=== PATIENT | female | born 1995 | race Hispanic/Latino ===

== ENCOUNTER 2018-10-23 13:05 | Emergency (ER) | payer MEDICARE, OTHER ==
[~2018-10-23] VITALS: Ht 160 cm; Wt 57.6 kg
--- NOTE | 2018-10-23 13:25 | NUR ---
RECEIVED REPORT FROM MERLINE YOU RN TO ASSUME PTS CARE. PT AMBULATED FROM THE LOBBY WITH STEADY GAIT INTO ER ROOM 6.
[2018-10-23 13:29] LABS: BASOPHILS % 0.1 % (0.0-1.0); EOSINOPHILS # (AUTO) 0.1 (0.0-0.4); EOSINOPHILS % 0.7 % (0.0-6.0); HEMATOCRIT 37.8 % (34.2-44.1); HEMOGLOBIN 13.4 g/dL (12.0-16.0); LYMPHOCYTES # (AUTO) 1.4 (1.0-3.2); LYMPHOCYTES % 20.8 % (18.0-39.1); MEAN CORPUSCULAR HEMOGLOBIN 31.5 pg (28-32); MEAN CORPUSCULAR HGB CONC 35.4 g/dL (31-35); MEAN CORPUSCULAR VOLUME 88.7 fL (81-99); MONOCYTES # (AUTO) 0.4 (0.2-0.8); MONOCYTES % 5.8 % (4.4-11.3); NEUTROPHILS # (AUTO) 4.8 (2.1-6.9); NEUTROPHILS % 72.3 % (38.7-80.0); PLATELET COUNT 135 x10e3/uL (140-360); RED BLOOD COUNT 4.26 x10e6/uL (3.6-5.1); RED CELL DISTRIBUTION WIDTH 11.7 % (11.7-14.4)
--- NOTE | 2018-10-23 13:35 | NUR ---
LAB HAD CALLED AND SAID THAT THEY NEEDED A RED TOP TUBE FOR ONE OF THE LABS. BLOOD WAS DRAWN WITH A BUTTERFLY FROM THE RIGHT AC
[2018-10-23 13:58] LABS: ALANINE AMINOTRANSFERASE 7 IU/L (0-55); ALBUMIN 4.2 g/dL (3.5-5.0); ALBUMIN/GLOBULIN RATIO 1.4 (0.8-2.0); ALKALINE PHOSPHATASE 45 IU/L (40-150); ANION GAP 11.6 mmol/L (8-16); BLOOD UREA NITROGEN 7 mg/dL (7-26); BUN/CREATININE RATIO 11 (6-25); CARBON DIOXIDE 22 mmol/L (22-29); CHLORIDE 106 mmol/L (98-107); CREATININE, SERUM 0.63 mg/dL (0.57-1.11); EST GLOMERULAR FILTRATION RATE > 60 ML/MIN (60-); GLUCOSE 91 mg/dL (74-118); POTASSIUM 3.6 mmol/L (3.5-5.1); SODIUM 136 mmol/L (136-145)
[2018-10-23 14:04] LABS: HCG,QUANTITATIVE 1899.56 mIU/mL (0-10)
--- NOTE | 2018-10-23 14:30 | NUR ---
DISCHARGE INSTRUCTIONS GIVEN. F/U CARE DISCUSSED. PT VERBALIZED UNDERSTANDING. AT DISCHARGE PT WAS ASKING IF WE WERE GOING TO "CLEAN HER OUT". I EXPLAINED TO HER THAT SHE WOULD HAVE TO SEE HER FIELD MECHANIC/SITE LEAD ABOUT THAT. THAT PROCEDURE IS NOT DONE IN THE ER.
[2018-10-23 14:38] VITALS: BP 106/70
== END 2018-10-23 14:32 | disposition home or self-care (01) ==
LOC: ER 13:05
DX: O20.9 Hemorrhage in early pregnancy, unspecified (principal); O20.0 Threatened abortion
CPT/HCPCS: 36415; 80053; 84702; 85025; 99283